=== PATIENT | female | born 1970 | race Caucasian/White ===

== ENCOUNTER 2021-12-23 08:50 | Emergency (ER) | payer OTHER, SELFPAY ==
[2021-12-23 09:04] VITALS: BP 157/80; PULSE 73; RESP 20; TEMP 36.6; O2SAT 99
--- NOTE | 2021-12-23 10:26 | ED.URI ---
HPI - URI/Sore Throat General Chief Complaint: Upper Respiratory Infection Stated Complaint: Cough Time Seen by Provider: 12/23/21 10:15 Source: patient, RN notes reviewed and old records reviewed Mode of arrival: ambulatory Limitations: no limitations History of Present Illness HPI Narrative: 51-year-old female who presents to [facility] with complaints cough for 1 and half weeks,nasal congestion and drainage, fatigue, some rib pain. Patient reports frontal headache pain with drainage.states she has had intermittent low grade fevers. Patient does use tobacco daily.She has taken cooper [place] cold medication, DayQuil and NyQuil for her symptoms, and cough drops. Patient denies any body aches has not had COVID vaccinations nor has she had COVID,did have flu shot last year but has not had this year. Patieint did take a home COVID test which was negative. MD elicited complaint: cough and sore throat Pertinent past history: other (tobacco abuse) Onset (ago): week(s) (1.5) Pain scale (0-10): 4 Treatments prior to arrival: cold medicine and other (NyQuil, DayQuil cough drops, cooper seltzer ) Related Data Allergies Allergy/AdvReac Type Severity Reaction Status Date / Time No Known Allergies Allergy Verified 12/23/21 09:44 Review of Systems Review of Systems: CONSTITUTIONAL: Reports malaise, chills, sweats, or fever. EYES: Denies visual changes, redness, or discharge. ENT: Reports rhinorrhea, congestion, sinus pain, no otalgia mild sore throat. CARDIOVASCULAR: Denies chest pain, palpitations, or edema. RESPIRATORY: Reports cough.? Report dyspnea with exertion.reports rib pain with cough GASTROINTESTINAL: Denies abdominal pain, nausea, vomiting, diarrhea SKIN: Denies rash or itching. MUSCULOSKELETAL: Denies myalgia. NEUROLOGIC: Reports frontal headache. All systems reviewed & are unremarkable except as noted in HPI and below PMFSH Past Medical History Medical History (Updated 12/29/21 @ 10:43 by Thelma Alvarado NP) Hypertension Surgical History Surgical History (Updated 12/23/21 @ 10:42 by Thelma Alvarado NP) History of endometrial ablation Family History Family History (Updated 10/22/13 @ 07:13 by DOCTOR UNKNOWN) Mother Family history of heart disease in male family member before age 55 Social History Social History (Updated 12/29/21 @ 10:40 by Thelma Alvarado NP) Smoking packs per day: 0.5 Smoking cigarettes per day: 10.0 Years smoked: 35 Smoking pack-years: 17.50 Smoking status: Current every day smoker Tobacco type: cigarettes Alcohol intake: current Alcohol use details: social Substance use: never Living arrangements: with family Gender identity (if verbalized by the patient): Female Comments At time of signature, agree with nursing past medical, surgical, social and family history. There is no relevant family history pertinent to the presenting complaint Exam Narrative: GENERAL: Well-appearing, well-nourished, and in no acute distress. HEAD: Normocephalic EYES: PERRLA, conjunctivae clear ENT: Nares clear, turbinates edematous and erythematous, clear discharge. Mucous membranes moist. TM pearly lucia with dull light reflex bilaterally; no tragal tenderness. Oropharynx erythematous without lesions. Tonsils not enlarged and without exudate, no drooling, no hoarseness, no trismus, uvula midline.post nasal drainag NECK: Supple. No lymphadenopathy CHEST: Clear to auscultation, breath sounds equal. No wheezing, rhonchi, rales, or stridor. No respiratory distress, speaks in full sentences.frequent cough productive with some dyspnea with exertion, SAO2 99% on room air HEART: Regular rate and rhythm. No murmur heard. SKIN: Warm, dry, no rash. NEURO: Alert and oriented x3. PSYCH: Normal mood and affect Course Course Emergency Course: Patient is aware of diagnosis, understands and agrees to treatment plan.? Anticipatory guidance given.? Patient a
== END 2021-12-23 10:50 | disposition home or self-care (01) ==
PROVIDERS: Emergency Provider Registered Nurse
DX: J32.9 Chronic sinusitis, unspecified (principal); R05.9 Cough, unspecified; I10 Essential (primary) hypertension; F17.210 Nicotine dependence, cigarettes, uncomplicated
CPT/HCPCS: 99203; G0463

== ENCOUNTER 2022-07-03 16:58 | Emergency (ER) | payer OTHER, SELFPAY ==
--- NOTE | ~2022-07-03 | XR_ITS ---
EXAMINATION: XR chest 2V Exam Date/Time: 07/03/2022 7:35 CDT HISTORY: Cough x 1 week. Negative covid Comparison: None. RESULT: Lines, tubes, and devices: None. Lungs and pleura: Biapical pleural scarring. No focal consolidation. No effusion. Cardiomediastinal silhouette: Unremarkable. Other: No acute osseous or upper abdominal finding. IMPRESSION: No acute cardiopulmonary process. Reviewed, dictated and finalized at location K.
--- NOTE | 2022-07-03 18:23 | ED_ITS ---
HPI - General Adult General Chief complaint: Upper Respiratory Infection Stated complaint: cold/cough Related Data Allergies Allergy/AdvReac Type Severity Reaction Status Date / Time No Known Allergies Allergy Verified 12/23/21 09:44 [facility] Past Medical History Medical History (Updated 07/03/22 @ 18:25 by Ras Estrella, [facility], ) Hypertension Surgical History Surgical History (Updated 12/23/21 @ 10:42 by Thelma Alvarado NP) History of endometrial ablation Family History Family History (Updated 10/22/13 @ 07:13 by DOCTOR UNKNOWN) Mother Family history of heart disease in male family member before age 55 Social History Social History (Updated 12/29/21 @ 10:40 by Thelma Alvarado NP) Smoking packs per day: 0.5 Smoking cigarettes per day: 10.0 Years smoked: 35 Smoking pack-years: 17.50 Smoking status: Current every day smoker Tobacco type: cigarettes Alcohol intake: current Alcohol use details: social Substance use: never Living arrangements: with family Gender identity (if verbalized by the patient): Female Course Course Emergency Course: This is a 51-year-old female who presented for evaluation of sick symptoms. Please see paper charting for additional details related to history and physical exam. Chest x-ray today here negative. COVID negative. She has evidence of otitis media on exam. Will treat with Augmentin. Will also dc with prednisone due to smoking hx. She informs me she has been wheezing in the evenings. Follow up with primary provider. Go to ER for difficulty breathing. Advised on smoking cessation. Patient in agreement plan of care Level of Care: Express Care Visit Medical Decision Making Lab Data Labs: Lab Results 07/03/22 Range/Units Unknown POC SARS CoV-2 Ag Negative (Negative) Discharge Plan Discharge Clinical Impression: Otitis media Qualifiers: Otitis media type: unspecified Chronicity: acute Qualified Code(s): H66.90 - Otitis media, unspecified, unspecified ear Cough Qualifiers: Cough type: acute Qualified Code(s): R05.1 - Acute cough Patient Disposition: Home, Self-Care Condition: Stable Instructions: Antibiotic Form, How to Stop Smoking (ED), Ear Infection (GEN) Patient Language: Chinese Prescriptions: New amoxicillin-pot clavulanate 875-125 mg tablet 1 tablet PO Q12H Qty: 20 0RF prednisone 50 mg tablet 50 mg PO DAILY Qty: 5 0RF albuterol sulfate 90 mcg/actuation HFA aerosol inhaler 2 puff inhalation QID PRN (Reason: shortness of breath or wheezing) Qty: 8.5 0RF Follow-up/Referrals: Kevon Kaminski MD [Physician] - Time of Disposition: 18:20
== END 2022-07-03 18:29 | disposition home or self-care (01) ==
PROVIDERS: Emergency Provider Nurse Practitioner
DX: H66.93 Otitis media, unspecified, bilateral (principal); R05.1 Acute cough; Z20.822 Contact with and (suspected) exposure to COVID-19; I10 Essential (primary) hypertension
CPT/HCPCS: 71046; 87426; 99213; C9803; G0463